=== PATIENT | female | born 2000 | race Caucasian/White ===

== ENCOUNTER 2025-01-16 16:44 | Emergency (ER) | payer MEDICAID, SELFPAY ==
--- NOTE | 2025-01-16 16:52 | EKG_ITS ---
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
--- NOTE | 2025-01-16 16:52 | XR_ITS ---
Examination: PA lateral chest 2 views TECHNIQUE: Upright PA lateral chest 2 views Date and time: January 08, 2025 1514 hours INDICATIONS: Chest pain loss of breath today. FINDINGS: Significant right lower lobe pneumonia. Normal heart size. Left lung clear. Osseous structures intact IMPRESSION: Significant right lower lobe pneumonia
[2025-01-16 17:01] VITALS: BP 130/83; PULSE 102; RESP 20; TEMP 38.3; O2SAT 95; BMI 28.7
--- NOTE | 2025-01-16 17:03 | EDRME_ITS ---
Rapid Medical Screening Exam [facility] Arrival date/time: 01/16/25 16:44 24-year-old female presents to the emergency department if complains of cough, congestion, sore throat and generalized fatigue ongoing x 3 days Chief Complaint: Syncope / Near Syncope Vital signs: Vital Signs Temperature 100.9 F H 01/16/25 17:01 Pulse Rate 102 H 01/16/25 17:01 Respiratory Rate 20 01/16/25 17:01 Blood Pressure 130/83 01/16/25 17:01 Pulse Oximetry (%) 95 01/16/25 17:01 Oxygen Delivery Method Room Air 01/16/25 17:01
[2025-01-16 17:37] LABS: Strep A Rapid Negative (Negative)
[2025-01-16 17:45] VITALS: TEMP 38.3
[2025-01-16] MEDS: ACETAMINOPHEN 500 MG TABLET 1000 MG PO (17:45)
[2025-01-16 17:48] LABS: Alanine Aminotransferase 28 U/L (10-49); Albumin, Serum 4.4 gm/dL (3.5-5.0); Albumin/Globulin Ratio 2.0 (1.2-2.2); Alkaline Phosphatase 59 U/L (46-116); Anion Gap 9 (7-16); Aspartate Amino Transferase 31 U/L (0-34); BUN/Creatinine Ratio 8 Ratio (12-20); Bilirubin,Total 0.4 mg/dL (0.3-1.2); Blood Urea Nitrogen < 5 mg/dL (9-23); Calcium 9.3 mg/dL (8.3-10.6); Calcium (Corrected) 9.3 mg/dL (8.5-10.1); Carbon Dioxide 25.4 mMol/L (20.0-31.0); Chloride 103 mMol/L (98-107); Creatinine (Component) 0.6 mg/dL (0.6-1.3); Estimated Creatinine Clearance 168.6 mL/min (>60); Globulin 2.2 gm/dL (2.3-3.5); Glucose 102 mg/dL (74-106); Lipase 27 U/L (12-53); Osmolality,Calculated 271 (275-295); Potassium 3.6 mMol/L (3.4-5.1); Sodium 137 mMol/L (136-145); Total Protein 6.6 gm/dL (5.7-8.2); Troponin I < 0.002 ng/mL (0.0-0.045); eGFR > 60 See Note
[2025-01-16 17:56] LABS: Basophils # (Auto) 0.0 Thou/mm3 (0.0-0.2); Basophils % (Auto) 0 % (0-2.5); Eosinophils # (Auto) 0.1 Thou/mm3 (0.0-0.5); Eosinophils % (Auto) 1 % (0-10); Hematocrit 42.4 % (36.0-46.0); Hemoglobin 14.6 g/dL (12.0-16.0); Immature Granulocytes Auto 0.02 Thou/mm3 (0.00-0.00); Lymphocytes # (Auto) 1.1 Thou/mm3 (1.0-4.8); Lymphocytes % (Auto) 16 % (10-50); Mean Corpuscular HGB Conc 34.4 g/dl (31.0-37.0); Mean Corpuscular Hemoglobin 29.9 pg (25.0-35.0); Mean Corpuscular Volume 87 fL (80-100); Monocytes # (Auto) 0.6 Thou/mm3 (0.0-0.8); Monocytes % (Auto) 9 % (0-12); Neutrophils # (Auto) 4.7 Thou/mm3 (1.8-7.7); Neutrophils % (Auto) 73 % (37-80); Nucleated Red Blood Cell # 0.00 Thou/mm3 (0.00-0.00); Nucleated Red Blood Cell % 0 /100 WBC (0); Platelet Count 244 Thou/mm3 (140-440); RDW Standard Deviation 38.8 fL (36.4-46.3); Red Blood Count 4.89 Miln/mm3 (4.00-5.20); White Blood Count 6.4 Thou/mm3 (3.6-11.0)
[2025-01-16 18:03] LABS: HCG Qualitative,Urine Negative
[2025-01-16 21:04] VITALS: BP 142/89; PULSE 102; RESP 16; TEMP 37.3; O2SAT 95
[2025-01-16 21:10] VITALS: TEMP 37.3
--- NOTE | 2025-01-16 21:19 | PD.EDSYNC ---
ED Syncope RME/HPI General Chief Complaint: Syncope / Near Syncope Stated Complaint: Fever, weak, syncope at work Time Seen by Provider: 01/16/25 19:50 Arrival date/time: 01/16/25 16:44 RME / HPI RME / HPI narrative: 24-year-old female presents to the emergency department if complains of cough, congestion, sore throat and generalized fatigue ongoing x 3 days. Severity of symptoms moderate. Associated with chest pain and coughing. Also complained of on and off fever. Denies any other complaints or medications taken prior to arrival. Related Data Previous Rx's ?Medication ?Instructions ?Recorded ibuprofen 600 mg tablet 600 mg PO Q6HR PRN PAIN #20 tabs 05/25/15 amoxicillin 875 mg-potassium 1 tab PO BID #14 tabs 01/16/25 clavulanate 125 mg tablet azithromycin 250 mg tablet 250 mg PO QDAY 4 days #4 tabs 01/16/25 (Zithromax) ibuprofen 800 mg tablet 800 mg PO Q8H PRN pain #30 tabs 01/16/25 Allergies Allergy/AdvReac Type Severity Reaction Status Date / Time NKA* Allergy Uncoded 01/16/25 16:50 Review of Systems Review of Systems Narrative Review of Systems: Review of system reviewed and within normal limits except mentioned in HPI ED Exam Narrative Physical exam: VITAL SIGNS: Reviewed. GENERAL APPEARANCE: Alert and interactive, follows commands, no acute distress, HEAD AND FACE: Non-traumatic. ENT: PERRL, pink conjunctivitis, eyelid no trauma, Mucous membrane moist. NECK: Supple, nontender, no nuchal rigidity. CHEST: No tenderness, no crepitus, no paradoxical movement, no retractions. LUNGS: Clear, well ventilated, symmetric, no rales, no wheezing, no ronchi, no stridor, decreased breath sounds on the right lower lung field HEART: Regular rate, regular rhythm, no murmur, no gallops. ABDOMEN: Soft, positive bowel sounds, nondistended, no guarding, nontender, no rebound, no masses, RECTAL: Deferred. GENITAL: Deferred. NEUROLOGICAL: Gross motor function intact sensory function intact, Appropriate for age. MUSCULOSKELETAL: low back nontender, full range of motion. EXTREMITIES: Nontender, full range of motion. SKIN: Color pink, dry, no rash, no lacerations, no abrasions, no contusions. LYMPHATICS: Deferred. Course Quality Measures none Orders Category Date Time Status Bedside COVID-19 Antigen Test NOW Care 01/16/25 17:02 Active Bedside Influenza A&B Antigen Test NOW Care 01/16/25 17:02 Completed EKG (ED ONLY) *Do not use* NOW Care 01/16/25 16:52 Completed EKG (ED Only) Stat Exams 01/16/25 16:52 Draft XR chest 2V Stat Exams 01/16/25 16:52 Completed CBC Stat Lab 01/16/25 17:04 Completed Cocci Serology IgM with reflex to IgG [Cocci Serology, Lab 01/16/25 21:25 Ordered Unk History] Stat Comprehensive Metabolic Panel Stat Lab 01/16/25 17:04 Completed HCG Qualitative,Urine Stat Lab 01/16/25 17:12 Completed Lipase Stat Lab 01/16/25 17:04 Completed Strep A Rapid Stat Lab 01/16/25 17:05 Completed Troponin I Stat Lab 01/16/25 17:04 Completed Acetaminophen Tab [Tylenol ES Tab] Med 01/16/25 17:02 Discontinued 1,000 mg PO X1 ONE Azithromycin Po [Zithromax PO] Med 01/16/25 21:18 Discontinued 500 mg PO X1 ONE cefTRIAXone [Rocephin] 1,000 mg Med 01/16/25 21:18 Discontinued Lidocaine 1% 20 ml [Xylocaine 1% 20 ML] 2.1 ml IM X1 Vital Signs Vital signs: Vital Signs Temperature 100.9 F H 01/16/25 17:01 Pulse Rate 102 H 01/16/25 17:01 Respiratory Rate 20 01/16/25 17:01 Blood Pressure 130/83 01/16/25 17:01 Pulse Oximetry (%) 95 01/16/25 17:01 Oxygen Delivery Method Room Air 01/16/25 17:01 Syncope MDM Narrative MDM Narrative:: 24-year-old female presents to the emergency department if complains of cough, congestion, sore throat and generalized fatigue ongoing x 3 days. Severity of symptoms moderate. Associated with chest pain and coughing. Also complained of on and off fever. Denies any other complaints or medications taken prior to arrival. Patient CBC came back unremarkable. EKG showed sinus tachycardia, ventricular rate of 102 bpm, no ST segment elevation or depression noted. Chest x-ray showed significant right lower lobe pneumonia. Results discussed with the patient. Patient receives ceftriaxone IM and Zithromax. Patient appears nontoxic and hemodynamically stable .Decision to discharge the patient. The patient/family was given an opportunity to ask questions and understood their discharge instructions. Discharge instructions specifically included follow up provider and time frame, current and/or new medications and possible side effects, indications for sooner follow up or return to the emergency department, and the expected course of current diagnosis. Patient reports feeling better as well and giving evidence of significant clinical improvement, I believe patient is now a candidate for discharge. I added cocci test. Results will be back in 2 to 3 days. Patient was advised to follow-up with PCP for the results or return to the emergency room. We will call her also for the results. Patient data External records reviewed:: None Clinical information provided by:: none Social determinants that could affect healthcare access:: none Patient has the following chronic illnesses:: None How is presenting disease/condition affected by chronic disease/condition?: no chronic disease Evaluation data The following diagnostics were reviewed and interpreted by me:: lab results, radiology exam(s) and EKG tracing(s) Lab and/or radiology exams considered but not ordered:: None Interpretation Summary: See results MDM Medications / Prescriptions Medications or Prescriptions considered but not ordered:: None Medication administrations:: Medication Administration History Discontinued Medications Acetaminophen (Acetaminophen 500 Mg Tablet) 1,000 mg PO X1 ONE Stop: 01/16/25 17:03 Last Admin: 01/16/25 17:45 Dose: 1,000 mg Documented By: Azithromycin (Azithromycin 250 Mg Tablet) 500 mg PO X1 ONE Stop: 01/16/25 21:19 Ceftriaxone Sodium 1,000 mg/ (Lidocaine HCl 2.1 ml) 0 mg IM X1 ONE Stop: 01/16/25 21:19 Zithromax, ceftriaxone, Tylenol Consultations Consultation(s) initiated? (list below): No Diagnosis Syncope Differential Diagnosis: vasovagal syncope Most likely diagnosis given after review of the tests above:: Pneumonia Admission Indicated Admission indicated?: not indicated Admission Request Was there a request for admission?: No Disposition Plan Disposition Plan: Discharge Discharge Attestation Discharge Attestation: The patient and all family members were given an opportunity to ask questions and understood the discharge instructions. Discharge instructions specifically effects, indications for sooner follow up or return to the emergency department, and the expected course of current diagnosis. Patient condition: Stable Discharge Plan Plan Patient Disposition: HOME (Self Care) Discharge Disposition comment: Stable Prescriptions/Referrals Prescriptions/Med Rec: New azithromycin [Zithromax] 250 mg tablet 250 mg PO QDAY 4 Days Qty: 4 0RF Rx Instructions: start on day 2 of therapy amoxicillin-pot clavulanate 875-125 mg tablet 1 tab PO BID Qty: 14 0RF ibuprofen 800 mg tablet 800 mg PO Q8H PRN (Reason: pain) Qty: 30 0RF No Action ibuprofen 600 MG tablet 600 mg PO Q6HR PRN (Reason: PAIN) Qty: 20 0RF Referrals: No Primary/Family,Physician [Primary Care Provider] - In 1 week Problem List Clinical Impression: Pneumonia Patient/Caregiver Discharge Instructions Discharge Activity: activity as tolerated Education Materials: Treating Pneumonia Additional Instructions: Thank you for the opportunity for serving you today. You are stable for discharged . You are advised to: Follow-up with your PCP in 1 to 2 days Return to ED for worsening of symptoms Increase oral fluids Take medication as prescribed Print Language: Romanian Stand Alone Forms: Cindy Award Info., Patient Portal Info Letter
[2025-01-16] MEDS: cefTRIAXone 1,000 MG, LIDOCAINE 1% 20 ML 2.1 ML IM (21:41)
[2025-01-16] MEDS: AZITHROMYCIN 250 MG TABLET 500 MG PO (21:41)
[2025-01-18 15:55] LABS: Cocci Serology, IgM Negative (Negative)
[2025-01-21 11:24] LABS: Cocci Serology, IgG Negative (Negative)
== END 2025-01-16 21:42 | disposition home or self-care (01) ==
PROVIDERS: Nurse Practitioner Family; Nurse Practitioner Primary Care; Emergency Provider Emergency Medicine
DX: J18.9 Pneumonia, unspecified organism (principal); R00.0 Tachycardia, unspecified
CPT/HCPCS: 36415; 71046; 80053; 81025; 83690; 84484; 85025; 86331; 86635; 87400; 87651; 87811; 93005; 96372; 99283; J0696; J3490; A9270